=== PATIENT | female | born 1980 | race Caucasian/White ===

== ENCOUNTER 2018-06-06 11:51 | Emergency (ER) | payer MEDICAID ==
[~2018-06-06] VITALS: Ht 149.9 cm; Wt 37.2 kg
[2018-06-06 12:23] LABS: *BILIRUBIN,URIN NEGATIVE (NEGATIVE); *BLOOD, URINE NEGATIVE (NEGATIVE); *CLARITY,URINE CLEAR (CLEAR); *COLOR,URINE YELLOW (YELLOW); *KETONES,URINE NEGATIVE (NEGATIVE); *PROTEIN,URINE NEGATIVE (NEGATIVE); *UROBILINOGEN,URINE 0.2 E.U./dl (NORMAL); LEUKOCYTE ESTERASE ,URINE NEGATIVE (NEGATIVE); NITRITE, URINE NEGATIVE (NEGATIVE); PH,URINE 7.5 (5.0-8.0); UGLUCOSE NEGATIVE (NEGATIVE)
[2018-06-06] MEDS ORDERED: IV NORMAL SALINE 1000 ML BAG IV ONE ×2 (12:30→13:00)
[2018-06-06] MEDS ORDERED: ONDANSETRON 4 MG/2 ML VIAL IV ONE ×2 (12:30→15:15)
[2018-06-06] MEDS ORDERED: KETOROLAC TROMETHAMINE 15 MG INJ IV ONE (12:30)
[2018-06-06 12:31] LABS: BACTERIA,URINE FEW /HPF (NONE SEEN); RBC,URINE 0-3 /HPF (0-3); WBC,URINE NONE SEEN /HPF (0-3); YEAST,URINE FEW /HPF (NONE SEEN)
[2018-06-06 12:33] LABS: SQUAMOUS EPITHELIAL CELL,UR MODERATE /HPF (NONE SEEN)
[2018-06-06] MEDS ORDERED: ONDANSETRON 4 MG/2 ML VIAL ONE ×2 (12:39→15:33)
[2018-06-06] MEDS ORDERED: KETOROLAC TROMETHAMINE 30 MG INJ ONE (12:39)
--- NOTE | 2018-06-06 12:53 | NUR ---
Pt signed consent for IV contrast for CT, placed in the chart.
[2018-06-06 12:57] LABS: CARBON DIOXIDE 28 mmol/L (21-32); CHLORIDE 104 mmol/L (98-107); CREATININE 0.7 mg/dL (0.6-1.3); GLUCOSE 103 mg/dL (74-106); POTASSIUM 3.7 mmol/L (3.5-5.1); UREA NITROGEN, BLOOD 22 mg/dL (7-18)
[2018-06-06 13:01] LABS: BASOPHILS % (AUTO) 0.4 % (0.0-2.0); EOSINOPHILS % (AUTO) 0.2 % (0.0-7.0); HEMATOCRIT 40.1 % (31.2-41.9); HEMOGLOBIN 13.5 g/dL (10.9-14.3); LYMPHOCYTES # (AUTO) 1.6 K/uL (20.0-40.0); MEAN CORPUSCULAR HEMOGLOBIN 29.2 uug (24.7-32.8); MEAN CORPUSCULAR HGB CONC 34 g/dL (32.3-35.6); MEAN CORPUSCULAR VOLUME 86.9 fL (75.5-95.3); MONOCYTES # (AUTO) 0.7 K/uL (2.0-10.0); MONOCYTES % (AUTO) 5.8 % (0.0-11.0); NEUTROPHILS # (AUTO) 9.1 K/uL (1.8-8.9); NEUTROPHILS % (AUTO) 79.6 % (38.5-71.5); PLATELET COUNT (AUTO) 241 K/uL (179-408); RED BLOOD CELL COUNT(AUTO) 4.62 MIL/uL (3.63-4.92); WHITE BLOOD COUNT (AUTO) 11.5 K/uL (3.8-11.8)
[2018-06-06 13:04] LABS: ALANINE AMINOTRANSFERASE 17 U/L (14-59); ALKALINE PHOSPHATASE 60 U/L (50-136); ASPARTATE AMINOTRANSFERASE 10 U/L (15-37); BILIRUBIN,DIRECT 0.1 mg/dL (0.0-0.2); BILIRUBIN,TOTAL 0.5 mg/dL (0.2-1.0); LIPASE 102 U/L (73-393); TOTAL PROTEIN, SERUM 7.4 g/dL (6.4-8.2)
[2018-06-06] MEDS ORDERED: IOHEXOL 350 100 ML INFUS..BTL ONE (13:29)
[2018-06-06] MEDS ORDERED: SWABABLE VALVE TRANSFER SET EA MC ONE (13:29)
[2018-06-06] MEDS ORDERED: IV NORMAL SALINE 250 ML IV ONE (13:29)
[2018-06-06] MEDS ORDERED: MORPHINE SULFATE 2 MG/1 ML DISP.SYRIN ONE (13:51)
[2018-06-06] MEDS: MORPHINE SULFATE 2 MG/1 ML DISP.SYRIN IV ONE ×2 (13:54→14:02)
[2018-06-06] MEDS ORDERED: MORPHINE SULFATE 4 MG/1 ML DISP.SYRIN IV ONE (15:15)
[2018-06-06] MEDS ORDERED: MORPHINE SULFATE 4 MG/1 ML DISP.SYRIN ONE (15:33)
--- NOTE | 2018-06-06 16:00 | NUR ---
Patient discharged to home in stable conditon. Written and verbal after care instructions given. Patient verbalizes understanding of instructions.
[2018-06-06 16:01] VITALS: BP 114/66
== END 2018-06-06 16:03 | disposition home or self-care (01) ==
LOC: ER 11:51
DX: I87.8 Other specified disorders of veins (principal); N83.202 Unspecified ovarian cyst, left side; F12.10 Cannabis abuse, uncomplicated; Z88.5 Allergy status to narcotic agent
CPT/HCPCS: 36415; 71275; 74177; 80048; 80076; 81001; 83690; 84702; 85025; 96374 ×2; 96375; 96376; 99285; J1885; J2270 ×2; J2405 ×2; Q9967; A4663; J7050

== ENCOUNTER 2022-10-24 07:53 | Emergency (ER) | payer BC, MEDICAID ==
[~2022-10-24] VITALS: Ht 149.9 cm; Wt 40.8 kg
--- NOTE | 2022-10-24 08:10 | NUR ---
[email or web address],medical screeening exam in progress
[2022-10-24] MEDS ORDERED: METOCLOPRAMIDE HCL 10 MG/2 ML VIAL ONE (08:27)
[2022-10-24] MEDS ORDERED: IV NORMAL SALINE 1000 ML BAG IV ONE ×2 (08:30→09:45)
[2022-10-24] MEDS ORDERED: METOCLOPRAMIDE HCL 10 MG/2 ML VIAL IV ONE ×2 (08:30→09:45)
[2022-10-24 08:50] LABS: HEMATOCRIT 36.1 % (31.2-41.9); MEAN CORPUSCULAR HEMOGLOBIN 28.6 uug (24.7-32.8); MEAN CORPUSCULAR VOLUME 86.4 fL (75.5-95.3); PLATELET COUNT (AUTO) 249 K/uL (179-408)
[2022-10-24 09:03] LABS: BILIRUBIN,DIRECT 0.2 mg/dL (0.0-0.2); BILIRUBIN,TOTAL 0.7 mg/dL (0.2-1.0); CREATININE 0.6 mg/dL (0.6-1.3); POTASSIUM 3.4 mmol/L (3.5-5.1); TOTAL PROTEIN, SERUM 7.1 g/dL (6.4-8.2)
--- NOTE | 2022-10-24 09:37 | NUR ---
Patient is resting comfortably on gurney with eyes closed, intermittent nausea expressed, pending urine sample and blood tests' results@this time.
--- NOTE | 2022-10-24 09:55 | NUR ---
Patient refused 2nd bag of IV fluid bolus and 2nd dose of IV MD Jorje notified.
[2022-10-24 09:57] LABS: *BILIRUBIN,URIN 1+ (NEGATIVE); *BLOOD, URINE NEGATIVE (NEGATIVE); *CLARITY,URINE CLEAR (CLEAR); *COLOR,URINE YELLOW (YELLOW); *KETONES,URINE 4+ (NEGATIVE); *UROBILINOGEN,URINE 0.2 E.U./dl (NORMAL); LEUKOCYTE ESTERASE ,URINE NEGATIVE (NEGATIVE); NITRITE, URINE NEGATIVE (NEGATIVE); PH,URINE 5.5 (5.0-8.0); UGLUCOSE NEGATIVE (NEGATIVE)
[2022-10-24 09:58] LABS: *URINE HCG, QUAL POS (NEGATIVE)
--- NOTE | 2022-10-24 10:00 | NUR ---
Patient is seen drinking from her own water bottle, denies nausea and abdominal pains at the moment. "I feel better." per patient's report, pending urine test results at this time.
[2022-10-24] MEDS ORDERED: DOXY1TAB4 PO (10:37)
[2022-10-24] MEDS ORDERED: METO-295 PO (10:38)
--- NOTE | 2022-10-24 10:45 | NUR ---
Pending discharge papers from MD, no acute change in condition seen.
--- NOTE | 2022-10-24 11:01 | NUR ---
Patient discharged to home by Dr Yan in stable condition with brisk steady gait. Written and verbal after care instructions given to patient and spouse. Patient and family verbalized understanding and compliance of instructions. Stressed follow up with primary doctor and OB-pony edger or return to ER for worsening s/s.
== END 2022-10-24 11:01 | disposition home or self-care (01) ==
LOC: ER 07:56
DX: O21.8 Other vomiting complicating pregnancy (principal); O26.891 Other specified pregnancy related conditions, first trimester; E87.6 Hypokalemia; Z88.5 Allergy status to narcotic agent; Z79.899 Other long term (current) drug therapy; Z3A.01 Less than 8 weeks gestation of pregnancy
CPT/HCPCS: 99283; 96374; 80076; 80048; 81003; 84703; 83690; 85025; 87040 ×2; 36415; 83605; J2765; J7040; A4663